=== PATIENT | female | born 1970 | race African-American/Black ===

== ENCOUNTER 2020-01-30 23:28 | Inpatient (IN) | payer MEDICAID ==
[~2020-01-30] VITALS: Ht 165.1 cm; Wt 44.0 kg
[2020-01-31] MEDS ORDERED: MORPHINE SULFATE 4 MG/ML CPJ (NOT FOR IM USE) IV STA (03:26)
[2020-01-31] MEDS ORDERED: FAMOTIDINE 20MG/2ML VIAL IV STA (03:26)
[2020-01-31] MEDS ORDERED: ONDANSETRON HCL 4MG/2ML INJ IV STA (03:26)
[2020-01-31] MEDS ORDERED: SODIUM CHLORIDE 0.9% 1,000 ML IV ONE (03:30)
[2020-01-31] MEDS ORDERED: CEFTRIAXONE 1 G PREMIX 50 ML IV ONE (03:30)
[2020-01-31 04:08] LABS: BASOPHILS % 0.3 % (0.0-2.0); HEMOGLOBIN. 17.3 g/dL (12.0-16.0); LYMPHOCYTES % 10.7 % (20.0-50.0); MEAN CORPUSCULAR HEMOGLOBIN 31.3 pg (28.0-32.0); MEAN PLATELET VOLUME 7.9 fl (7.4-10.4); MONOCYTES % 9.3 % (2.0-8.0); NEUTROPHILS % 79.7 % (40.0-76.0); PLATELET 316 x1000/uL (130-400); RED BLOOD CELL COUNT 5.53 mill/uL (4.2-5.4); RED CELL DISTRIBUTION WIDTH 14.9 % (11.6-14.6)
[2020-01-31 04:17] LABS: CHLORIDE 109 mEq/L (98-107)
[2020-01-31 04:23] LABS: ETHANOL BLOOD < 10 mg/dL
[2020-01-31 04:25] LABS: PROTHROMBIN TIME 10.2 sec (9.6-11.0)
[2020-01-31 08:50] VITALS: BP 121/92
[2020-01-31] MEDS ORDERED: ONDANSETRON HCL 4MG/2ML INJ IV PRN (09:15)
[2020-01-31] MEDS ORDERED: ACETAMINOPHEN 325MG TABLET PO PRN (09:15)
[2020-01-31] MEDS ORDERED: LORAZEPAM 2MG/ML CPJ IV PRN (09:15)
[2020-01-31 10:10] LABS: HEMATOCRIT 46.3 % (36.0-48.0); HEMOGLOBIN 15.2 g/dL (12.0-16.0)
[2020-01-31 10:23] LABS: CREATINE KINASE 56 IU/L (26-192)
[2020-01-31] MEDS: PANTOPRAZOLE SODIUM 40 MG/VIAL IV SCH ×2 (10:23→21:35)
[2020-01-31] MEDS: AMLODIPINE 10MG TABLET PO SCH (10:23)
[2020-01-31] MEDS: FOLIC ACID 1 MG, THIAMINE HCL 100 MG, MVI, ADULT NO.1 10 ML in DEXTROSE 5% WATER 1,000 ML IV SCH ×4 (11:44)
[2020-01-31 12:00] VITALS: BP 150/97
[2020-01-31 16:00] VITALS: BP 140/87
[2020-01-31 20:00] VITALS: BP 128/80
[2020-01-31] MEDS: DEXT 5%/0.45% NACL 1000ML 1,000 ML IV SCH (21:47)
[2020-02-01] VITALS: BP 111/74
[2020-02-01 04:00] VITALS: BP 146/96
[2020-02-01 07:39] LABS: BASOPHILS % 0.4 % (0.0-2.0); EOSINOPHILS % 0.6 % (0.0-5.0); HEMATOCRIT. 37.9 % (36.0-48.0); HEMOGLOBIN. 12.7 g/dL (12.0-16.0); LYMPHOCYTES % 21.2 % (20.0-50.0); MEAN CORPUSCULAR HEMOGLOBIN 31.6 pg (28.0-32.0); MEAN CORPUSCULAR VOLUME 94.5 fL (81.0-99.0); MEAN PLATELET VOLUME 7.9 fl (7.4-10.4); NEUTROPHILS % 68.8 % (40.0-76.0); PLATELET 216 x1000/uL (130-400); RED BLOOD CELL COUNT 4.01 mill/uL (4.2-5.4); RED CELL DISTRIBUTION WIDTH 14.9 % (11.6-14.6)
[2020-02-01 08:00] VITALS: BP 145/95
[2020-02-01] MEDS: AMLODIPINE 10MG TABLET PO SCH (08:29)
[2020-02-01] MEDS: PANTOPRAZOLE SODIUM 40 MG/VIAL IV SCH (08:29)
[2020-02-01] MEDS: DEXT 5%/0.45% NACL 1000ML 1,000 ML IV SCH ×2 (08:30→17:30)
[2020-02-01] MEDS: FOLIC ACID 1 MG, THIAMINE HCL 100 MG, MVI, ADULT NO.1 10 ML in DEXTROSE 5% WATER 1,000 ML IV SCH ×4 (09:11)
[2020-02-01 12:00] VITALS: BP 123/82
[2020-02-01] MEDS ORDERED: MULT-1116 MT (13:10)
[2020-02-01] MEDS ORDERED: THIA100T88 MT (13:10)
[2020-02-01] MEDS ORDERED: AMLO10TA80 PO (13:10)
[2020-02-01] MEDS ORDERED: OMEP20CA14 MT (13:10)
[2020-02-01] MEDS ORDERED: FOLI-43 MT (13:10)
[2020-02-01 13:23] LABS: CLARITY URINE CLEAR (CLEAR); COLOR URINE YELLOW (YELLOW); KETONES URINE NEGATIVE (NEGATIVE); LEUKOCYTE ESTERASE URINE 1+ (NEGATIVE); NITRITE URINE NEGATIVE (NEGATIVE); OCCULT BLOOD URINE TRACE (NEGATIVE); PH URINE 6.5 (4.5-8.0); PROTEIN URINE TRACE (NEGATIVE); SPECIFIC GRAVITY URINE 1.006 (1.005-1.030); UROBILINOGEN URINE 0.2 E.U./dL (0.2-1.0)
[2020-02-01 13:32] LABS: PHENCYCLIDINE URINE SCREEN NEGATIVE (NEGATIVE)
[2020-02-01 13:33] LABS: *AMPHETAMINES SCREEN URINE NEGATIVE (NEGATIVE); *BARBITURATES SCREEN URINE NEGATIVE (NEGATIVE); *BENZODIAZEPINES SCREEN URINE NEGATIVE (NEGATIVE); METHADONE URINE SCREEN NEGATIVE (NEGATIVE); OPIATES URINE SCREEN NEGATIVE (NEGATIVE)
[2020-02-01 13:38] LABS: *COCAINE SCREEN URINE PRESUMTIVE POSITIVE (NEGATIVE); CANNABINOID URINE SCREEN PRESUMTIVE POSITIVE (NEGATIVE)
[2020-02-01 15:49] VITALS: BP 125/86
[2020-02-01 16:00] VITALS: BP 125/84
[2020-02-02] MEDS ORDERED: FAMOTIDINE 20MG/2ML VIAL IV SCH (09:00)
== END 2020-02-01 20:49 | disposition home or self-care (01) | DRG 254 ==
LOC: ER 23:28 → 5WST 01-31 05:51 → ENRESERV 01-31 07:54 → 5WST 01-31 15:15
PROVIDERS: ADMIT Internal Medicine; ATTEND Internal Medicine
DX: K64.8 Other hemorrhoids (principal); K22.6 Gastro-esophageal laceration-hemorrhage syndrome; N17.0 Acute kidney failure with tubular necrosis; K29.01 Acute gastritis with bleeding; K20.91 Esophagitis, unspecified with bleeding; F12.90 Cannabis use, unspecified, uncomplicated; F10.10 Alcohol abuse, uncomplicated; Y90.9 Presence of alcohol in blood, level not specified; E87.2 Acidosis; F17.210 Nicotine dependence, cigarettes, uncomplicated; I10 Essential (primary) hypertension; E87.8 Other disorders of electrolyte and fluid balance, not elsewhere classified; R74.01 Elevation of levels of liver transaminase levels; K70.9 Alcoholic liver disease, unspecified; D72.829 Elevated white blood cell count, unspecified; Z71.41 Alcohol abuse counseling and surveillance of alcoholic; Z71.6 Tobacco abuse counseling; K52.9 Noninfective gastroenteritis and colitis, unspecified
CPT/HCPCS: 36415; 71045; 74176; 76700; 80048; 80053; 80076; 80305; 80320; 81003; 82248; 82550; 83605; 85014; 85018; 85025; 86850; 86900; 93005; 96365; 99285; C9113; J0696; J2270; J2405; J3411; J3490; J7030; J7070; G0480

== ENCOUNTER 2020-08-19 09:31 | Emergency (ER) | payer MEDICAID, OTHER ==
[~2020-08-19] VITALS: Ht 165.1 cm; Wt 50.0 kg
[~2020-08-19 09:31] MED LIST: AMLO10TA80 PO; FOLI-43 MT; MULT-1116 MT; OMEP20CA14 MT; THIA100T88 MT
[2020-08-19] MEDS ORDERED: ONDANSETRON HCL 4MG/2ML INJ IV STA (09:47)
[2020-08-19] MEDS ORDERED: MORPHINE SULFATE 4 MG/ML CPJ (NOT FOR IM USE) IV STA (09:47)
[2020-08-19 10:20] LABS: HEMOGLOBIN. 16.1 g/dL (12.0-16.0); MEAN CORPUSCULAR HEMOGLOBIN 30.8 pg (28.0-32.0); MEAN PLATELET VOLUME 8.7 fl (7.4-10.4); RED BLOOD CELL COUNT 5.22 mill/uL (4.2-5.4); RED CELL DISTRIBUTION WIDTH 15.6 % (11.6-14.6)
[2020-08-19 10:24] LABS: CHLORIDE 103 mEq/L (98-107)
[2020-08-19 10:27] LABS: PROTHROMBIN TIME 10.8 sec (9.6-11.0)
[2020-08-19 11:22] LABS: PLATELET ESTIMATE MARKEDLY DECREASED
[2020-08-19 11:52] LABS: HAPTOGLOBIN 181 mg/dL (30-200)
[2020-08-19 17:25] VITALS: BP 136/96
[2020-08-20 12:06] LABS: PLATELET 37 x1000/uL (130-400)
== END 2020-08-19 17:53 | disposition short-term general hospital (02) ==
LOC: ER 09:45 → CANBEDREQ 15:15 → ER 17:53
DX: K92.2 Gastrointestinal hemorrhage, unspecified (principal); D69.6 Thrombocytopenia, unspecified; K56.7 Ileus, unspecified; F12.10 Cannabis abuse, uncomplicated; F17.200 Nicotine dependence, unspecified, uncomplicated; F10.20 Alcohol dependence, uncomplicated; Z90.49 Acquired absence of other specified parts of digestive tract; Z98.890 Other specified postprocedural states; Z79.899 Other long term (current) drug therapy; Y90.9 Presence of alcohol in blood, level not specified
CPT/HCPCS: 36415; 71045; 74176; 80053; 83010; 83605; 83615; 83690; 85025; 85044; 85384; 85610; 86850; 86900; 86901; 93005; 96374; 96375; 99291; J2270; J2405

== ENCOUNTER 2020-09-09 06:44 | Inpatient (IN) | payer OTHER ==
[~2020-09-09] VITALS: Ht 165.1 cm; Wt 49.9 kg
[2020-09-09 08:21] LABS: BASOPHILS % 0.7 % (0.0-2.0); EOSINOPHILS % 1.4 % (0.0-5.0); HEMATOCRIT. 26.1 % (36.0-48.0); MEAN CORPUSCULAR HEMOGLOBIN 35.1 pg (28.0-32.0); MEAN CORPUSCULAR VOLUME 101.3 fL (81.0-99.0); MEAN PLATELET VOLUME 7.3 fl (7.4-10.4); MONOCYTES % 13.1 % (2.0-8.0); NEUTROPHILS % 56.8 % (40.0-76.0); PLATELET 227 x1000/uL (130-400); RED BLOOD CELL COUNT 2.57 mill/uL (4.2-5.4); RED CELL DISTRIBUTION WIDTH 18.7 % (11.6-14.6)
[2020-09-09 08:31] LABS: CHLORIDE 107 mEq/L (98-107); PARTIAL THROMBOPLASTIN TIME 29.1 sec (23.4-31.0); PROTHROMBIN TIME 10.7 sec (9.6-11.0)
[2020-09-09 08:40] LABS: HCG SCREEN NEGATIVE
[2020-09-09] MEDS ORDERED: ONDANSETRON HCL 4MG/2ML INJ IV ONE (09:15)
[2020-09-09] MEDS ORDERED: ACETAMINOPHEN WITH CODEINE 300/30MG TABLET PO ONE (09:15)
[2020-09-09] MEDS ORDERED: INSULIN REGULAR (HUMULIN R) 300UNITS/3ML VIAL IV ONE (11:45)
[2020-09-09] MEDS ORDERED: DEXTROSE 50% WATER 50ML SYRINGE IV ONE ×2 (11:45→12:30)
[2020-09-09] MEDS ORDERED: SODIUM POLYSTYRENE SULFONATE 15 G/60 ML BOT PO ONE (11:45)
[2020-09-09] MEDS ORDERED: DOCUSATE SODIUM 100MG CAPSULE PO PRN (18:00)
[2020-09-09] MEDS ORDERED: ONDANSETRON HCL 4MG/2ML INJ IV PRN (18:00)
[2020-09-09] MEDS ORDERED: MAGNESIUM/ALUMINUM HYDROXIDE/SIMETHICONE 30ML UDC PO PRN (18:00)
[2020-09-09] MEDS ORDERED: IPRATROPIUM/ALBUTEROL 0.5-3(2.5)MG/3ML NEB NEB PRN (18:00)
[2020-09-09] MEDS ORDERED: CLONIDINE 0.1MG TABLET PO PRN (18:00)
[2020-09-09 22:48] VITALS: BP 144/91
[2020-09-09 22:50] VITALS: BP 144/91
[2020-09-09] MEDS: ACETAMINOPHEN 325MG TABLET PO PRN (23:23)
[2020-09-10 04:34] VITALS: BP 143/86
[2020-09-10 08:00] VITALS: BP 160/90
[2020-09-10 08:38] LABS: BASOPHILS % 0.7 % (0.0-2.0); EOSINOPHILS % 1.2 % (0.0-5.0); HEMATOCRIT. 27.6 % (36.0-48.0); HEMOGLOBIN. 9.4 g/dL (12.0-16.0); LYMPHOCYTES % 30.1 % (20.0-50.0); MEAN CORPUSCULAR HEMOGLOBIN 34.4 pg (28.0-32.0); MEAN CORPUSCULAR VOLUME 100.6 fL (81.0-99.0); MONOCYTES % 14.7 % (2.0-8.0); NEUTROPHILS % 53.3 % (40.0-76.0); PLATELET 229 x1000/uL (130-400); RED BLOOD CELL COUNT 2.74 mill/uL (4.2-5.4); RED CELL DISTRIBUTION WIDTH 18.3 % (11.6-14.6)
[2020-09-10 12:00] VITALS: BP 150/92
[2020-09-10] MEDS: CHLORDIAZEPOXIDE 25MG CAPSULE PO SCH ×2 (14:40→20:53)
[2020-09-10] MEDS: HYDROCODONE/ACETAMINOPHEN 5/325MG TABLET PO PRN (14:48)
[2020-09-10 16:00] VITALS: BP 136/87
[2020-09-10 20:00] VITALS: BP 135/93
[2020-09-10] MEDS ORDERED: EPOETIN ALFA-EPBX 10,000 UNIT/ML VIAL SUBCUT SCH (21:00)
[2020-09-10 22:22] LABS: HEPATITIS B SURFACE ANTIGEN NEGATIVE
[2020-09-10 22:52] LABS: HEPATITIS A AB IGM NEGATIVE (NEGATIVE)
[2020-09-11] VITALS: BP 140/81
[2020-09-11 04:00] VITALS: BP 148/93
[2020-09-11] MEDS: CHLORDIAZEPOXIDE 25MG CAPSULE PO SCH ×3 (05:27→22:18)
[2020-09-11 07:51] LABS: BASOPHILS % 0.7 % (0.0-2.0); EOSINOPHILS % 1.1 % (0.0-5.0); HEMATOCRIT. 24.8 % (36.0-48.0); HEMOGLOBIN. 8.5 g/dL (12.0-16.0); LYMPHOCYTES % 33.9 % (20.0-50.0); MEAN CORPUSCULAR HEMOGLOBIN 34.6 pg (28.0-32.0); MEAN CORPUSCULAR VOLUME 100.5 fL (81.0-99.0); MEAN PLATELET VOLUME 7.2 fl (7.4-10.4); MONOCYTES % 14.6 % (2.0-8.0); NEUTROPHILS % 49.7 % (40.0-76.0); PLATELET 169 x1000/uL (130-400); RED BLOOD CELL COUNT 2.47 mill/uL (4.2-5.4); RED CELL DISTRIBUTION WIDTH 18.7 % (11.6-14.6)
[2020-09-11 08:00] VITALS: BP 129/89
[2020-09-11 08:33] LABS: PHOSPHORUS 2.5 mg/dL (2.5-4.9)
[2020-09-11] MEDS: HYDROCODONE/ACETAMINOPHEN 5/325MG TABLET PO PRN ×2 (10:32→23:54)
[2020-09-11 12:00] VITALS: BP 134/85
[2020-09-11] MEDS: LORAZEPAM 2MG/ML CPJ IV PRN (13:11)
[2020-09-11] MEDS ORDERED: LORAZEPAM 2MG/ML CPJ IV PRN (13:15)
[2020-09-11 16:00] VITALS: BP 129/96
[2020-09-11] MEDS: BACITRACIN 15GM TUBE TOP SCH (18:45)
[2020-09-11 20:00] VITALS: BP 137/93
[2020-09-11] MEDS: ACETAMINOPHEN 325MG TABLET PO PRN (23:59)
[2020-09-12] VITALS: BP 140/90
[2020-09-12 04:00] VITALS: BP 166/97
[2020-09-12] MEDS: CHLORDIAZEPOXIDE 25MG CAPSULE PO SCH ×2 (05:09→13:12)
[2020-09-12] MEDS: LORAZEPAM 2MG/ML CPJ IV PRN ×4 (06:40→19:58)
[2020-09-12 08:00] VITALS: BP 145/74
[2020-09-12 08:10] LABS: IMMUNOGLOBULIN A 374 mg/dL (87-352); IMMUNOGLOBULIN G 2442 mg/dL (586-1602); IMMUNOGLOBULIN M 275 mg/dL (26-217)
[2020-09-12] MEDS: BACITRACIN 15GM TUBE TOP SCH (09:17)
[2020-09-12] MEDS: ACETAMINOPHEN 325MG TABLET PO PRN ×2 (09:19→16:31)
[2020-09-12 10:07] LABS: BASOPHILS % 0.5 % (0.0-2.0); EOSINOPHILS % 1.3 % (0.0-5.0); HEMATOCRIT. 27.7 % (36.0-48.0); HEMOGLOBIN. 9.8 g/dL (12.0-16.0); LYMPHOCYTES % 30.2 % (20.0-50.0); MEAN CORPUSCULAR HEMOGLOBIN 36.3 pg (28.0-32.0); MEAN CORPUSCULAR VOLUME 102.9 fL (81.0-99.0); MEAN PLATELET VOLUME 7.1 fl (7.4-10.4); MONOCYTES % 12.2 % (2.0-8.0); NEUTROPHILS % 55.8 % (40.0-76.0); PLATELET 151 x1000/uL (130-400); RED BLOOD CELL COUNT 2.69 mill/uL (4.2-5.4); RED CELL DISTRIBUTION WIDTH 18.4 % (11.6-14.6)
[2020-09-12] MEDS ORDERED: NA PHOS,M-B/NA PHOS,DI-BA ENEMA 118ML PR SCH (11:30)
[2020-09-12] MEDS ORDERED: LACTULOSE 20G/30ML UDC PO SCH (11:30)
[2020-09-12 12:00] VITALS: BP_SYST 151; BP_SYST 162; BP_DIAS 105; BP_DIAS 67
[2020-09-12 16:00] VITALS: BP 147/91
== END 2020-09-12 20:00 | disposition left against medical advice (07) | DRG 425 ==
LOC: ER 06:44 → 5WST 17:24 → EDBEDREQ 17:51 → EDBEDREQTM 17:51 → ENRESERV 22:24
PROVIDERS: ADMIT Internal Medicine; ATTEND Internal Medicine
PROC: 5A1D70Z Performance of Urinary Filtration, Intermittent, Less than 6 Hours Per Day (ICD-10-PCS; principal; 2020-09-10)
PROC: 5A1D70Z Performance of Urinary Filtration, Intermittent, Less than 6 Hours Per Day (ICD-10-PCS; 2020-09-12)
DX: E87.5 Hyperkalemia (principal); E43 Unspecified severe protein-calorie malnutrition; E87.2 Acidosis; I12.0 Hypertensive chronic kidney disease with stage 5 chronic kidney disease or end stage renal disease; N18.6 End stage renal disease; D64.9 Anemia, unspecified; E87.1 Hypo-osmolality and hyponatremia; F10.10 Alcohol abuse, uncomplicated; Z53.29 Procedure and treatment not carried out because of patient's decision for other reasons; T82.848A Pain due to vascular prosthetic devices, implants and grafts, initial encounter; Y84.8 Other medical procedures as the cause of abnormal reaction of the patient, or of later complication, without mention of misadventure at the time of the procedure; F12.90 Cannabis use, unspecified, uncomplicated; F17.210 Nicotine dependence, cigarettes, uncomplicated; Z82.49 Family history of ischemic heart disease and other diseases of the circulatory system; Z90.49 Acquired absence of other specified parts of digestive tract; Z91.15 Patient's noncompliance with renal dialysis; Z99.2 Dependence on renal dialysis; Z68.1 Body mass index [BMI] 19.9 or less, adult; Y92.89 Other specified places as the place of occurrence of the external cause
CPT/HCPCS: 36415; 71045; 76604; 80048; 80053; 80061; 82784; 82962; 83735; 84100; 84703; 85025; 86334; 86705; 86709; 86803; 86850; 86870; 86900; 87340; 93005; 93971; 96374; 96375; 99291; J0885; J1815; J2060; J2405

== ENCOUNTER 2020-09-19 08:40 | Emergency (ER) | payer OTHER ==
[~2020-09-19] VITALS: Ht 162.6 cm; Wt 61.0 kg
[2020-09-19] MEDS ORDERED: MORPHINE SULFATE 4 MG/ML CPJ (NOT FOR IM USE) IV ONE (09:00)
[2020-09-19 09:39] LABS: BASOPHILS % 0.6 % (0.0-2.0); EOSINOPHILS % 0.9 % (0.0-5.0); HEMATOCRIT. 35.4 % (36.0-48.0); LYMPHOCYTES % 25.4 % (20.0-50.0); MEAN CORPUSCULAR HEMOGLOBIN 32.6 pg (28.0-32.0); MEAN CORPUSCULAR VOLUME 96.7 fL (81.0-99.0); MONOCYTES % 11.9 % (2.0-8.0); NEUTROPHILS % 61.2 % (40.0-76.0); PLATELET 233 x1000/uL (130-400); RED BLOOD CELL COUNT 3.66 mill/uL (4.2-5.4); RED CELL DISTRIBUTION WIDTH 17.1 % (11.6-14.6)
[2020-09-19 09:46] LABS: CHLORIDE 106 mEq/L (98-107)
[2020-09-19 09:50] LABS: ETHANOL BLOOD < 10 mg/dL; HCG SCREEN NEGATIVE
[2020-09-19 09:50] LABS: CLARITY URINE CLEAR (CLEAR); COLOR URINE YELLOW (YELLOW); KETONES URINE NEGATIVE (NEGATIVE); LEUKOCYTE ESTERASE URINE 3+ (NEGATIVE); NITRITE URINE POSITIVE (NEGATIVE); OCCULT BLOOD URINE TRACE (NEGATIVE); PH URINE 6.5 (4.5-8.0); PROTEIN URINE 2+ (NEGATIVE); UROBILINOGEN URINE 0.2 E.U./dL (0.2-1.0)
[2020-09-19 10:10] LABS: *AMPHETAMINES SCREEN URINE NEGATIVE (NEGATIVE)
[2020-09-19 10:11] LABS: *BARBITURATES SCREEN URINE NEGATIVE (NEGATIVE); METHADONE URINE SCREEN NEGATIVE (NEGATIVE); OPIATES URINE SCREEN NEGATIVE (NEGATIVE)
[2020-09-19 10:12] LABS: PHENCYCLIDINE URINE SCREEN NEGATIVE (NEGATIVE)
[2020-09-19 10:15] LABS: *BENZODIAZEPINES SCREEN URINE PRESUMTIVE POSITIVE (NEGATIVE); *COCAINE SCREEN URINE PRESUMTIVE POSITIVE (NEGATIVE); CANNABINOID URINE SCREEN PRESUMTIVE POSITIVE (NEGATIVE)
[2020-09-19] MEDS ORDERED: FUROSEMIDE 100MG/10ML VIAL IV SCH (10:19)
[2020-09-19] MEDS ORDERED: CALCIUM GLUCONATE 100MG/ML 10ML VIAL IV ONE (10:30)
[2020-09-19] MEDS ORDERED: DEXTROSE 50% WATER 50ML SYRINGE IV SCH (10:30)
[2020-09-19] MEDS ORDERED: CALCIUM GLUCONATE 1GM PREMIX 50 ML IV SCH (10:30)
[2020-09-19] MEDS ORDERED: ASPIRIN 81MG TABLET PO SCH (10:30)
[2020-09-19] MEDS ORDERED: INSULIN REGULAR (HUMULIN R) 300UNITS/3ML VIAL IV SCH (10:30)
[2020-09-19] MEDS ORDERED: CEFAZOLIN 1000MG PREMIX 50 ML IV SCH (10:30)
[2020-09-19] MEDS ORDERED: DEXTROSE 50% WATER 50ML SYRINGE IV ONE (12:45)
[2020-09-19 16:45] VITALS: BP 150/96
== END 2020-09-19 18:02 | disposition short-term general hospital (02) ==
LOC: ER 08:40
DX: E87.5 Hyperkalemia (principal); I12.0 Hypertensive chronic kidney disease with stage 5 chronic kidney disease or end stage renal disease; N18.6 End stage renal disease; N39.0 Urinary tract infection, site not specified; R07.89 Other chest pain; F17.290 Nicotine dependence, other tobacco product, uncomplicated; Z90.49 Acquired absence of other specified parts of digestive tract; Z99.2 Dependence on renal dialysis; Z79.899 Other long term (current) drug therapy; Z20.822 Contact with and (suspected) exposure to COVID-19; Z98.890 Other specified postprocedural states; Z87.891 Personal history of nicotine dependence
CPT/HCPCS: 36415; 71045; 80053; 80305; 80320; 81003; 82962; 83605; 83690; 83880; 84484; 84703; 85025; 86850; 86900; 86901; 87040; 87077; 87086; 87186; 87426; 93005; 96365; 96375; 96376; 99291; J0610; J0690; J1815; J1940; J2270; Z7610; A4315; G0480

== ENCOUNTER 2020-10-07 16:24 | Emergency (ER) | payer OTHER ==
[~2020-10-07] VITALS: Ht 165.1 cm; Wt 60.0 kg
[2020-10-07 18:01] LABS: CHLORIDE 118 mEq/L (98-107)
[2020-10-07 18:36] LABS: BASOPHILS % 0.4 % (0.0-2.0); EOSINOPHILS % 1.4 % (0.0-5.0); HEMATOCRIT. 22.1 % (36.0-48.0); HEMOGLOBIN. 7.6 g/dL (12.0-16.0); LYMPHOCYTES % 23.5 % (20.0-50.0); MEAN CORPUSCULAR HEMOGLOBIN 32.2 pg (28.0-32.0); MEAN CORPUSCULAR VOLUME 94.2 fL (81.0-99.0); MEAN PLATELET VOLUME 6.6 fl (7.4-10.4); MONOCYTES % 9.6 % (2.0-8.0); NEUTROPHILS % 65.1 % (40.0-76.0); PLATELET 281 x1000/uL (130-400); RED BLOOD CELL COUNT 2.34 mill/uL (4.2-5.4); RED CELL DISTRIBUTION WIDTH 16.4 % (11.6-14.6)
[2020-10-07 18:51] LABS: CLARITY URINE CLEAR (CLEAR); COLOR URINE YELLOW (YELLOW); KETONES URINE NEGATIVE (NEGATIVE); LEUKOCYTE ESTERASE URINE TRACE (NEGATIVE); NITRITE URINE NEGATIVE (NEGATIVE); OCCULT BLOOD URINE NEGATIVE (NEGATIVE); PH URINE 6.5 (4.5-8.0); PROTEIN URINE 1+ (NEGATIVE); SPECIFIC GRAVITY URINE 1.011 (1.005-1.030); UROBILINOGEN URINE 0.2 E.U./dL (0.2-1.0)
[2020-10-07 19:10] LABS: *AMPHETAMINES SCREEN URINE NEGATIVE (NEGATIVE); *BARBITURATES SCREEN URINE NEGATIVE (NEGATIVE)
[2020-10-07 19:11] LABS: *BENZODIAZEPINES SCREEN URINE NEGATIVE (NEGATIVE); METHADONE URINE SCREEN NEGATIVE (NEGATIVE); OPIATES URINE SCREEN NEGATIVE (NEGATIVE); PHENCYCLIDINE URINE SCREEN NEGATIVE (NEGATIVE)
[2020-10-07 19:18] LABS: *COCAINE SCREEN URINE PRESUMTIVE POSITIVE (NEGATIVE); CANNABINOID URINE SCREEN PRESUMTIVE POSITIVE (NEGATIVE)
[2020-10-07] MEDS ORDERED: FUROSEMIDE 100MG/10ML VIAL IV STA (19:39)
[2020-10-07] MEDS ORDERED: ALBUTEROL (0.083%) 2.5MG/3ML NEB HHN ONE (19:45)
[2020-10-07] MEDS ORDERED: SODIUM BICARBONATE 8.4% 1 MEQ/ML 50ML SYR IV ONE (19:45)
[2020-10-07] MEDS ORDERED: DEXTROSE 50% WATER 50ML SYRINGE IV ONE (19:45)
[2020-10-07] MEDS ORDERED: INSULIN REGULAR (HUMULIN R) 300UNITS/3ML VIAL IV ONE (19:45)
[2020-10-07] MEDS ORDERED: SODIUM POLYSTYRENE SULFONATE 15 G/60 ML BOT PO ONE (19:45)
[2020-10-07] MEDS ORDERED: CALCIUM CHLORIDE 1GM/10ML SYR IV ONE (19:45)
[2020-10-07 21:15] VITALS: BP 128/76
== END 2020-10-07 21:26 | disposition short-term general hospital (02) ==
LOC: ER 16:24
DX: I13.11 Hypertensive heart and chronic kidney disease without heart failure, with stage 5 chronic kidney disease, or end stage renal disease (principal); N18.6 End stage renal disease; F12.10 Cannabis abuse, uncomplicated; F17.200 Nicotine dependence, unspecified, uncomplicated; F10.20 Alcohol dependence, uncomplicated; Z99.2 Dependence on renal dialysis; Z91.19 Patient's noncompliance with other medical treatment and regimen; Z90.49 Acquired absence of other specified parts of digestive tract; Z98.890 Other specified postprocedural states; Z79.899 Other long term (current) drug therapy; Y90.9 Presence of alcohol in blood, level not specified
CPT/HCPCS: 36415; 71045; 80053; 80305; 81003; 84484; 85025; 93005; 94644; 96374; 96375; 99285; J1815; J1940; J3490; Z7610

== ENCOUNTER 2021-02-25 16:31 | Inpatient (IN) | payer OTHER ==
[~2021-02-25] VITALS: Ht 165.1 cm; Wt 48.1 kg
[2021-02-25] MEDS ORDERED: MORPHINE SULFATE 4 MG/ML CPJ (NOT FOR IM USE) IV STA (17:20)
[2021-02-25] MEDS ORDERED: ONDANSETRON HCL 4MG/2ML INJ IV STA (17:20)
[2021-02-25 18:09] LABS: BASOPHILS % 0.5 % (0.0-2.0); EOSINOPHILS % 0.7 % (0.0-5.0); HEMATOCRIT. 38.3 % (36.0-48.0); HEMOGLOBIN. 12.4 g/dL (12.0-16.0); LYMPHOCYTES % 22.1 % (20.0-50.0); MEAN CORPUSCULAR HEMOGLOBIN 29.2 pg (28.0-32.0); MEAN CORPUSCULAR VOLUME 90.1 fL (81.0-99.0); MEAN PLATELET VOLUME 6.9 fl (7.4-10.4); MONOCYTES % 11.7 % (2.0-8.0); PLATELET 261 x1000/uL (130-400); RED BLOOD CELL COUNT 4.25 mill/uL (4.2-5.4); RED CELL DISTRIBUTION WIDTH 15.1 % (11.6-14.6)
[2021-02-25 18:14] LABS: CHLORIDE 113 mEq/L (98-107)
[2021-02-25 18:19] LABS: INR 0.9
[2021-02-25] MEDS ORDERED: MORPHINE SULFATE 2 MG/ML CPJ (NOT FOR IM USE) IV NR (18:20)
[2021-02-25] MEDS ORDERED: HYDRALAZINE HCL 10MG TABLET PO ONE (19:15)
[2021-02-26] MEDS ORDERED: DEXTROSE 50% WATER 50ML SYRINGE IV NR
[2021-02-26] MEDS ORDERED: SODIUM POLYSTYRENE SULFONATE 15 G/60 ML BOT PO NR
[2021-02-26] MEDS ORDERED: INSULIN REGULAR (HUMULIN R) 300UNITS/3ML VIAL IV NR
[2021-02-26 09:30] VITALS: BP 123/86
[2021-02-26 12:00] VITALS: BP 137/88
[2021-02-26] MEDS ORDERED: CLONIDINE 0.1MG TABLET PO PRN (13:00)
[2021-02-26] MEDS ORDERED: LORAZEPAM 0.5MG TABLET PO PRN (13:00)
[2021-02-26] MEDS ORDERED: ACETAMINOPHEN 325MG TABLET PO PRN ×2 (13:00)
[2021-02-26] MEDS ORDERED: ONDANSETRON HCL 4MG/2ML INJ IV PRN (13:00)
[2021-02-26] MEDS ORDERED: DOCUSATE SODIUM 100MG CAPSULE PO PRN (13:00)
[2021-02-26] MEDS ORDERED: HYDROCODONE/ACETAMINOPHEN 5/325MG TABLET PO PRN (13:00)
[2021-02-26] MEDS ORDERED: IPRATROPIUM/ALBUTEROL 0.5-3(2.5)MG/3ML NEB HHN PRN (13:00)
[2021-02-26 13:09] LABS: BG DEOXYHEMOGLOBIN 3.4 % (0.0-5.0); BG FRACTION INSPIRED OXYGEN 21; BG HCO3 ACT 18.3 mmol/L (22.0-26.0); BG METHEMOGLOBIN 0.3 % (0.0-1.5); BG OXYGEN SATURATION 96.6 % (92.0-98.5); BG OXYHEMOGLOBIN 96.3 % (94.0-97.0); BG PCO2 36.1 mmHg (35.0-45.0); BG PH 7.322 (7.350-7.450); BG PO2 96.2 mmHg (75.0-100.0); BG SAMPLE SITE RIGHT RADIAL; BG TOTAL HEMOGLOBIN 12.1 g/dL (12.0-18.0); BG VENT MODE ROOM AIR
[2021-02-26 16:00] VITALS: BP 122/76
[2021-02-26 17:13] LABS: HEPATITIS B SURFACE ANTIGEN NEGATIVE
[2021-02-26 20:00] VITALS: BP 152/79
[2021-02-27] VITALS: BP 123/74
[2021-02-27 04:00] VITALS: BP 140/73
[2021-02-27 08:00] VITALS: BP 123/87
[2021-02-27] MEDS: THIAMINE HCL 100MG TABLET PO SCH (10:08)
[2021-02-27] MEDS: MULTIVITAMINS,THER W-MINERALS TABLET PO SCH (10:08)
[2021-02-27] MEDS: FOLIC ACID 1MG TABLET PO SCH (10:08)
[2021-02-27] MEDS: OMEPRAZOLE 20MG CAPSULE EXTENDED RELEASE PO SCH (10:09)
[2021-02-27] MEDS ORDERED: LIDOCAINE HCL 4% CREAM 76GM TUBE TP PRN (10:15)
[2021-02-27 12:00] VITALS: BP 119/69
[2021-02-27 16:00] VITALS: BP 121/69
[2021-02-27 17:20] LABS: *AMPHETAMINES SCREEN URINE NEGATIVE (NEGATIVE); *BARBITURATES SCREEN URINE NEGATIVE (NEGATIVE); *BENZODIAZEPINES SCREEN URINE NEGATIVE (NEGATIVE); *COCAINE SCREEN URINE PRESUMTIVE POSITIVE (NEGATIVE)
[2021-02-27 17:21] LABS: CANNABINOID URINE SCREEN PRESUMTIVE POSITIVE (NEGATIVE); METHADONE URINE SCREEN NEGATIVE (NEGATIVE); OPIATES URINE SCREEN NEGATIVE (NEGATIVE); PHENCYCLIDINE URINE SCREEN NEGATIVE (NEGATIVE)
[2021-02-27 20:00] VITALS: BP 155/81
[2021-02-28] VITALS: BP 134/90
[2021-02-28 02:43] LABS: BASOPHILS % 0.6 % (0.0-2.0); EOSINOPHILS % 1.4 % (0.0-5.0); HEMOGLOBIN. 13.1 g/dL (12.0-16.0); LYMPHOCYTES % 33.5 % (20.0-50.0); MEAN CORPUSCULAR HEMOGLOBIN 28.7 pg (28.0-32.0); MEAN CORPUSCULAR VOLUME 87.8 fL (81.0-99.0); MEAN PLATELET VOLUME 7.8 fl (7.4-10.4); MONOCYTES % 10.3 % (2.0-8.0); NEUTROPHILS % 54.2 % (40.0-76.0); PLATELET 229 x1000/uL (130-400); RED BLOOD CELL COUNT 4.56 mill/uL (4.2-5.4); RED CELL DISTRIBUTION WIDTH 15.5 % (11.6-14.6)
[2021-02-28 04:00] VITALS: BP 128/76
[2021-02-28 08:00] VITALS: BP 97/64
[2021-02-28] MEDS: THIAMINE HCL 100MG TABLET PO SCH (09:33)
[2021-02-28] MEDS: OMEPRAZOLE 20MG CAPSULE EXTENDED RELEASE PO SCH (09:33)
[2021-02-28] MEDS: MULTIVITAMINS,THER W-MINERALS TABLET PO SCH (09:33)
[2021-02-28] MEDS: FOLIC ACID 1MG TABLET PO SCH (09:33)
[2021-02-28 12:00] VITALS: BP 122/83
[2021-03-01] MEDS ORDERED: FAMOTIDINE 20MG TABLET PO SCH (07:10)
== END 2021-02-28 15:08 | disposition left against medical advice (07) | DRG 425 ==
LOC: ER 16:31 → MICUSO 02-26 00:51 → EDBEDREQ 02-26 00:54 → EDBEDREQDT 02-26 00:54 → EDBEDREQTM 02-26 00:54 → 8WST 02-26 07:41
PROVIDERS: ADMIT Internal Medicine; ATTEND Internal Medicine
PROC: 5A1D70Z Performance of Urinary Filtration, Intermittent, Less than 6 Hours Per Day (ICD-10-PCS; principal; 2021-02-27)
DX: E87.5 Hyperkalemia (principal); E87.2 Acidosis; I12.0 Hypertensive chronic kidney disease with stage 5 chronic kidney disease or end stage renal disease; E87.70 Fluid overload, unspecified; F10.10 Alcohol abuse, uncomplicated; Y90.9 Presence of alcohol in blood, level not specified; D64.9 Anemia, unspecified; N18.6 End stage renal disease; L73.2 Hidradenitis suppurativa; Z90.49 Acquired absence of other specified parts of digestive tract; Z99.2 Dependence on renal dialysis; Z79.899 Other long term (current) drug therapy; Z91.19 Patient's noncompliance with other medical treatment and regimen
CPT/HCPCS: 36415; 36600; 71045; 74176; 80048; 80053; 80305; 82375; 82805; 83880; 84484; 85025; 86705; 86709; 86803; 87340; 93005; 99285; J1815; J2270; J2405

== ENCOUNTER 2022-08-29 10:18 | Inpatient (IN) | payer OTHER ==
[~2022-08-29] VITALS: Ht 162.6 cm; Wt 64.9 kg
[2022-08-29] MEDS ORDERED: KETOROLAC 15MG/ML VIAL IV ONE (11:45)
[2022-08-29 13:20] LABS: HEMATOCRIT. 22.7 % (36.0-48.0); MEAN CORPUSCULAR HEMOGLOBIN 29.6 pg (28.0-32.0); MEAN CORPUSCULAR VOLUME 97.3 fL (81.0-99.0); MEAN PLATELET VOLUME 7.3 fl (7.4-10.4); PLATELET 204 x1000/uL (130-400); RED BLOOD CELL COUNT 2.33 mill/uL (4.2-5.4); RED CELL DISTRIBUTION WIDTH 20.5 % (11.6-14.6)
[2022-08-29 13:26] LABS: CHLORIDE 108 mEq/L (98-107)
[2022-08-29 13:43] LABS: HEMOGLOBIN. 6.9 g/dL (12.0-16.0)
[2022-08-29 13:51] LABS: ETHANOL BLOOD < 10 mg/dL
[2022-08-29] MEDS ORDERED: DEXTROSE 50% WATER 50ML SYRINGE IV ONE ×2 (14:00→14:15)
[2022-08-29] MEDS ORDERED: ASPIRIN 325MG EC TABLET PO ONE (14:00)
[2022-08-29] MEDS ORDERED: DEXTROSE 50% WATER 50ML SYRINGE IV SCH (14:15)
[2022-08-29] MEDS ORDERED: LACTULOSE 20G/30ML UDC PO NR (15:30)
[2022-08-29 16:16] LABS: NUCLEATED RED BLOOD CELLS 4 /100 WBC; PLATELET ESTIMATE NORMAL
[2022-08-29] MEDS ORDERED: LORAZEPAM 2MG/ML CPJ IV PRN (18:15)
[2022-08-29 20:00] VITALS: BP 128/47
[2022-08-29] MEDS ORDERED: HYDROCODONE/ACETAMINOPHEN 5/325MG TABLET PO PRN (21:15)
[2022-08-29] MEDS ORDERED: NALOXONE HCL 0.4MG/ML VIAL IV PRN (21:30)
[2022-08-30] VITALS: BP 149/79
[2022-08-30 00:22] VITALS: BP 128/47
[2022-08-30] MEDS ORDERED: OMEPRAZOLE 20MG CAPSULE EXTENDED RELEASE PO SCH (06:40)
[2022-08-30] MEDS ORDERED: FOLIC ACID/VITAMIN B COMP W-C TABLET PO SCH (09:00)
[2022-08-30] MEDS ORDERED: AMLODIPINE 10MG TABLET PO SCH (09:00)
== END 2022-08-30 02:52 | DRG 282 ==
LOC: ER 10:18 → 7EST 15:31
PROVIDERS: ADMIT Internal Medicine; ATTEND Internal Medicine
PROC: 30233N1 Transfusion of Nonautologous Red Blood Cells into Peripheral Vein, Percutaneous Approach (ICD-10-PCS; 2022-08-29)
PROC: 5A12012 Performance of Cardiac Output, Single, Manual (ICD-10-PCS; principal; 2022-08-30)
DX: K85.90 Acute pancreatitis without necrosis or infection, unspecified (principal); I46.9 Cardiac arrest, cause unspecified; G92.8 Other toxic encephalopathy; E44.0 Moderate protein-calorie malnutrition; E72.20 Disorder of urea cycle metabolism, unspecified; I13.2 Hypertensive heart and chronic kidney disease with heart failure and with stage 5 chronic kidney disease, or end stage renal disease; D64.9 Anemia, unspecified; E27.8 Other specified disorders of adrenal gland; E87.20 Acidosis, unspecified; N18.6 End stage renal disease; I50.9 Heart failure, unspecified; E16.2 Hypoglycemia, unspecified; R74.01 Elevation of levels of liver transaminase levels; R74.8 Abnormal levels of other serum enzymes; F14.10 Cocaine abuse, uncomplicated; Z68.24 Body mass index [BMI] 24.0-24.9, adult; Z59.00 Homelessness unspecified; Z78.1 Physical restraint status; Z90.49 Acquired absence of other specified parts of digestive tract; Z79.899 Other long term (current) drug therapy; Z82.49 Family history of ischemic heart disease and other diseases of the circulatory system
CPT/HCPCS: 36415; 74176; 80053; 80320; 82140; 82962; 83880; 84484; 85025; 86850; 86900; 86920; 93005; 99285; C1893; J1885; J2060; P9016; G0480